=== PATIENT | female | born 1955 | race African-American/Black ===

== ENCOUNTER 2020-02-19 09:41 | Inpatient (IN) | payer BC, MEDICAID ==
[~2020-02-19] VITALS: Ht 160 cm; Wt 62.5 kg
[2020-02-19] VITALS (25 sets, daily range): BP systolic 90–127; BP diastolic 63–97
[2020-02-19 10:12] LABS: Basophils # (auto) 0 10 ^3/uL (0-0.2); Basophils % (auto) 0.3 % (0.0-2.0); Eosinophils # (auto) 0 10 ^3/uL (0-0.8); Hematocrit 32.9 % (36.0-46.0); Hemoglobin 10.6 g/dL (12.2-16.2); Lymphocytes # (auto) 0.7 10 ^3/uL (0.4-5.4); Lymphocytes % (auto) 5.8 % (10.0-50.0); Mean Corpuscular Hemoglobin 30.4 pg (28.0-32.0); Mean Corpuscular Hgb Conc. 32.1 g/dL (32.0-36.0); Mean Corpuscular Volume 94.4 fL (80.0-100.0); Monocytes # (auto) 0.3 10 ^3/uL (0-1.3); Monocytes % (auto) 2.5 % (0.0-12.0); Neutrophils # (auto) 11.2 10 ^3/uL (1.6-8.6); Neutrophils % (auto) 91.4 % (37.0-80.0); Nucleated Red Blood Cells % 0.2 %; Platelet Count (auto) 133 10^3/uL (140-450); Red Blood Cells 3.49 10^6/uL (4.0-5.20); White Blood Cell 12.2 10^3/uL (4.4-10.8)
[2020-02-19 10:17] LABS: Red Cell Distribution Width 22.9 % (11.8-14.3)
[2020-02-19 10:26] LABS: INR 1.45 (0.9-1.15); Partial Thromboplastin Time 22.6 sec (23.64-32.05)
[2020-02-19] MEDS ORDERED: SODIUM CHLORIDE 0.9% 1,000 ML IV ONE ×3 (11:00→17:00)
[2020-02-19] MEDS ORDERED: cefTRIAXone 1GM/50ML D5W 50 ML IV ONE (11:00)
[2020-02-19 11:05] LABS: Lactic Acid w/Reflex 2.2 mmol/L (0.4-2.0)
[2020-02-19 11:10] LABS: Urine Bacteria MOD /hpf (None Seen); Urine Blood TRACE /uL (Negative); Urine Hyaline Cast MOD /lpf (0 - 2); Urine Mucus FEW (None Seen); Urine Specific Gravity 1.018 (1.001-1.035); Urine WBC 3 /hpf (0 - 5)
[2020-02-19 11:33] LABS: Alanine Aminotransferase 131 U/L (13-56); Alkaline Phosphatase 287 U/L (45-117); Anion Gap 12 (5-15); Aspartate Aminotransferase 40 U/L (15-37); BUN/Creatinine Ratio 52.7; Blood Urea Nitrogen 79 mg/dL (7-18); Carbon Dioxide 22 mmol/L (21-32); Chloride 106 mmol/L (98-107); GFR African American 45 mL/min; GFR Non-African American 37 mL/min; Glucose 126 mg/dL (74-106); Potassium 4.4 mmol/L (3.5-5.1); Sodium 140 mmol/L (136-145)
[2020-02-19 11:34] LABS: Albumin 2.3 g/dL (3.4-5.0); Bilirubin, Total 1.3 mg/dL (0.2-1.0); Calcium 7.4 mg/dL (8.5-10.1); Total Protein 5.5 g/dL (6.4-8.2)
[2020-02-19] MEDS: SODIUM CHLORIDE 0.9% 1,000 ML IV ONE ×2 (12:45→13:27)
[2020-02-19] MEDS ORDERED: AZITHROMYCIN 500MG/ 250ML 250 ML IV ONE (12:45)
[2020-02-19] MEDS ORDERED: NOREPINEPHRINE 8 MG/250ML KIT 250 ML IV ONE (14:22)
[2020-02-19] MEDS ORDERED: LACTULOSE 20Gm/30ML SOLN PO PRN (14:45)
[2020-02-19] MEDS ORDERED: NITROGLYCERIN 0.4 MG SL TAB SL PRN (14:45)
[2020-02-19] MEDS ORDERED: ALBUTEROL SULF 2.5 MG/0.5ML(0.5%) NEB SOLN NEB PRN (14:45)
[2020-02-19] MEDS ORDERED: ONDANSETRON HCL 4 MG/2 ML VIAL IV PRN (14:45)
[2020-02-19] MEDS ORDERED: levoFLOXacin 500MG 100 ML IV ONE (14:45)
[2020-02-19] MEDS ORDERED: MORPHINE SULF INJ 2 MG/ML SYRINGE 1ML IV PRN ×3 (14:45)
[2020-02-19] MEDS: NOREPINEPHRINE 8 MG/250ML KIT 250 ML IV SCH (15:02)
[2020-02-19] MEDS ORDERED: ETOMIDATE (2MG/ML) 20ML VIAL IV ONE ×2 (15:20→15:30)
[2020-02-19] MEDS ORDERED: SUCCINYLCHOLINE CHLORIDE 20 MG/ML 10ML VIAL IV ONE ×2 (15:20→15:30)
[2020-02-19 15:25] LABS: Amphetamine Screen, Urine NEGATIVE (NEGATIVE); Barbiturate Scree,Urine NEGATIVE (NEGATIVE); Benzodiazephine Screen, Urine NEGATIVE (NEGATIVE); Cannabinoid Screen, Urine NEGATIVE (NEGATIVE); Cocaine Screen, Urine NEGATIVE (NEGATIVE); Opiate Scree,Urine NEGATIVE (NEGATIVE); Phencyclidine Screen, Urine NEGATIVE (NEGATIVE)
[2020-02-19] MEDS ORDERED: MIDAZOLAM DRIP 50 mg/50mL 50 ML IV ONE (15:28)
[2020-02-19] MEDS: MIDAZOLAM DRIP 50 mg/50mL 50 ML IV SCH (15:30)
[2020-02-19] MEDS ORDERED: SODIUM CHLORIDE 0.9% 1,000 ML IV SCH (15:45)
[2020-02-19] MEDS ORDERED: ENOXAPARIN SOD 60 MG/0.6 ML SYRINGE SC ONE (15:45)
[2020-02-19 15:53] LABS: CRP High Sensitivity 8.83 mg/dL (< 0.3)
[2020-02-19] MEDS: DOPamine 1600MCG/ML D5W 250 ML IV SCH (17:42)
[2020-02-19] MEDS: IPRATROPIUM BROM 0.5 MG/2.5ML INH SOL NEB SCH ×2 (18:35→23:59)
[2020-02-19] MEDS: ALBUTEROL SULF 2.5 MG/0.5ML(0.5%) NEB SOLN NEB SCH ×2 (18:35→23:59)
[2020-02-19 19:37] LABS: Free T3 1.28 pg/mL (2.3-4.2)
[2020-02-19 19:38] LABS: Free T4 (Free Thyroxine) 1.01 ng/dL (0.89-1.76)
[2020-02-19] MEDS ORDERED: FAMOTIDINE 20 MG TAB PO SCH (22:00)
[2020-02-20] VITALS (104 sets, daily range): BP systolic 83–130; BP diastolic 63–98
[2020-02-20] MEDS: MIDAZOLAM DRIP 50 mg/50mL 50 ML IV SCH (00:45)
[2020-02-20 04:36] LABS: Basophils # (auto) 0 10 ^3/uL (0-0.2); Eosinophils # (auto) 0 10 ^3/uL (0-0.8); Hematocrit 31.6 % (36.0-46.0); Hemoglobin 10.4 g/dL (12.2-16.2); Lymphocytes # (auto) 0.9 10 ^3/uL (0.4-5.4); Lymphocytes % (auto) 7.3 % (10.0-50.0); Mean Corpuscular Hemoglobin 30.8 pg (28.0-32.0); Mean Corpuscular Hgb Conc. 32.8 g/dL (32.0-36.0); Mean Corpuscular Volume 93.9 fL (80.0-100.0); Monocytes # (auto) 0.3 10 ^3/uL (0-1.3); Monocytes % (auto) 2.6 % (0.0-12.0); Neutrophils # (auto) 10.9 10 ^3/uL (1.6-8.6); Neutrophils % (auto) 90.1 % (37.0-80.0); Nucleated Red Blood Cells % 0.4 %; Platelet Count (auto) 95 10^3/uL (140-450); Red Blood Cells 3.36 10^6/uL (4.0-5.20); White Blood Cell 12.1 10^3/uL (4.4-10.8)
[2020-02-20 04:44] LABS: Red Cell Distribution Width 21.7 % (11.8-14.3)
[2020-02-20] MEDS: NOREPINEPHRINE 8 MG/250ML KIT 250 ML IV SCH (04:47)
[2020-02-20 04:50] LABS: INR 1.55 (0.9-1.15); Partial Thromboplastin Time 27.4 sec (23.64-32.05)
[2020-02-20 04:53] LABS: Potassium 4.1 mmol/L (3.5-5.1)
[2020-02-20 04:57] LABS: BUN/Creatinine Ratio 48.1; Calcium 7.3 mg/dL (8.5-10.1)
[2020-02-20 05:03] LABS: Bilirubin, Total 0.9 mg/dL (0.2-1.0); Total Protein 5.1 g/dL (6.4-8.2)
[2020-02-20] MEDS: ALBUTEROL SULF 2.5 MG/0.5ML(0.5%) NEB SOLN NEB SCH ×3 (07:05→18:29)
[2020-02-20] MEDS: IPRATROPIUM BROM 0.5 MG/2.5ML INH SOL NEB SCH ×3 (07:05→18:29)
[2020-02-20] MEDS ORDERED: levoFLOXacin 750MG 150 ML IV SCH (10:00)
[2020-02-20] MEDS ORDERED: levoFLOXacin 500MG 100 ML IV SCH (10:00)
[2020-02-20] MEDS ORDERED: PHENYLEPHRINE IV 250 ML IV ONE (13:03)
[2020-02-20] MEDS ORDERED: PHENYLEPHRINE IV 250 ML IV SCH (13:15)
[2020-02-20] MEDS ORDERED: DIGOXIN (250MCG/ML) 2 ML AMPULE IV ONE (13:15)
[2020-02-20] MEDS ORDERED: DIGOXIN (250MCG/ML) 2 ML AMPULE ONE (13:15)
[2020-02-20] MEDS ORDERED: AMIODARONE HCL 150 MG in D5W 5% 100 ML IV ONE (13:45)
[2020-02-20] MEDS ORDERED: AMIODARONE 450mg/250ml AE 250 ML IV SCH (13:48)
[2020-02-20] MEDS: PANTOPRAZOLE 40 MG/10 ML VIAL INJ IV SCH (14:47)
[2020-02-20] MEDS: PHENYLEPHRINE INJ 40 MG in SODIUM CHL 0.9% 250 ML IV SCH ×2 (16:46→23:05)
[2020-02-20] MEDS: DOPamine 1600MCG/ML D5W 250 ML IV SCH (16:48)
[2020-02-20] MEDS: AMIODARONE 450mg/250ml AE 250 ML IV SCH (20:38)
[2020-02-20] MEDS ORDERED: ENOXAPARIN SOD 60 MG/0.6 ML SYRINGE SC SCH (22:00)
[2020-02-21] VITALS (107 sets, daily range): BP systolic 83–119; BP diastolic 55–92
[2020-02-21] MEDS: ALBUTEROL SULF 2.5 MG/0.5ML(0.5%) NEB SOLN NEB SCH ×4 (00:20→18:31)
[2020-02-21] MEDS: IPRATROPIUM BROM 0.5 MG/2.5ML INH SOL NEB SCH ×4 (00:20→18:31)
[2020-02-21] MEDS: AMIODARONE 450mg/250ml AE 250 ML IV SCH (00:41)
[2020-02-21] MEDS ORDERED: PHENYLEPHRINE IV 250 ML IV ONE (09:59)
[2020-02-21] MEDS: PANTOPRAZOLE 40 MG/10 ML VIAL INJ IV SCH (10:06)
[2020-02-21] MEDS: MIDAZOLAM DRIP 50 mg/50mL 50 ML IV SCH (10:07)
[2020-02-21] MEDS: DOPamine 1600MCG/ML D5W 250 ML IV SCH (17:30)
[2020-02-21] MEDS: PHENYLEPHRINE INJ 40 MG in SODIUM CHL 0.9% 250 ML IV SCH (18:47)
[2020-02-22] VITALS (102 sets, daily range): BP systolic 79–120; BP diastolic 58–86
[2020-02-22] MEDS: IPRATROPIUM BROM 0.5 MG/2.5ML INH SOL NEB SCH ×4 (00:03→18:06)
[2020-02-22] MEDS: ALBUTEROL SULF 2.5 MG/0.5ML(0.5%) NEB SOLN NEB SCH ×4 (00:03→18:06)
[2020-02-22] MEDS: AMIODARONE 450mg/250ml AE 250 ML IV SCH ×2 (01:48→18:24)
[2020-02-22 04:08] LABS: Basophils # (auto) 0 10 ^3/uL (0-0.2); Basophils % (auto) 0.1 % (0.0-2.0); Eosinophils # (auto) 0 10 ^3/uL (0-0.8); Eosinophils % (auto) 0.2 % (0.0-7.0); Hemoglobin 10.9 g/dL (12.2-16.2); Lymphocytes # (auto) 0.5 10 ^3/uL (0.4-5.4); Lymphocytes % (auto) 5.8 % (10.0-50.0); Mean Corpuscular Hemoglobin 30.9 pg (28.0-32.0); Mean Corpuscular Hgb Conc. 33.1 g/dL (32.0-36.0); Mean Corpuscular Volume 93.4 fL (80.0-100.0); Monocytes # (auto) 0.3 10 ^3/uL (0-1.3); Monocytes % (auto) 3.2 % (0.0-12.0); Neutrophils # (auto) 8.2 10 ^3/uL (1.6-8.6); Neutrophils % (auto) 90.7 % (37.0-80.0); Platelet Count (auto) 82 10^3/uL (140-450); Red Blood Cells 3.53 10^6/uL (4.0-5.20)
[2020-02-22 04:10] LABS: Red Cell Distribution Width 22.8 % (11.8-14.3)
[2020-02-22 04:18] LABS: Albumin 1.6 g/dL (3.4-5.0); Potassium 3.1 mmol/L (3.5-5.1)
[2020-02-22 04:22] LABS: Bilirubin, Total 1.3 mg/dL (0.2-1.0); Total Protein 4.7 g/dL (6.4-8.2)
[2020-02-22] MEDS ORDERED: POTASSIUM CHL 20MEQ/100ML 100 ML IV ONE (06:30)
[2020-02-22] MEDS ORDERED: LEVOTHYROXINE SODIUM 100 MCG/5 ML INJ IV SCH (10:00)
[2020-02-22] MEDS: LEVOTHYROXINE SODIUM 100 MCG/5 ML INJ IV SCH (10:36)
[2020-02-22] MEDS: PANTOPRAZOLE 40 MG/10 ML VIAL INJ IV SCH (10:36)
[2020-02-22] MEDS: levoFLOXacin 750MG 150 ML IV SCH (10:37)
[2020-02-22] MEDS: MIDAZOLAM DRIP 50 mg/50mL 50 ML IV SCH (15:21)
[2020-02-22] MEDS: DOPamine 1600MCG/ML D5W 250 ML IV SCH (18:23)
[2020-02-22] MEDS: PHENYLEPHRINE INJ 40 MG in SODIUM CHL 0.9% 250 ML IV SCH (18:23)
[2020-02-23] VITALS (95 sets, daily range): BP systolic 93–154; BP diastolic 65–96
[2020-02-23] MEDS: ALBUTEROL SULF 2.5 MG/0.5ML(0.5%) NEB SOLN NEB SCH ×4 (00:03→18:24)
[2020-02-23] MEDS: IPRATROPIUM BROM 0.5 MG/2.5ML INH SOL NEB SCH ×4 (00:03→18:24)
[2020-02-23 04:31] LABS: Basophils # (auto) 0 10 ^3/uL (0-0.2); Basophils % (auto) 0.1 % (0.0-2.0); Eosinophils # (auto) 0 10 ^3/uL (0-0.8); Eosinophils % (auto) 0.3 % (0.0-7.0); Hematocrit 32.1 % (36.0-46.0); Hemoglobin 10.6 g/dL (12.2-16.2); Lymphocytes # (auto) 0.7 10 ^3/uL (0.4-5.4); Lymphocytes % (auto) 8.1 % (10.0-50.0); Mean Corpuscular Hgb Conc. 32.9 g/dL (32.0-36.0); Monocytes # (auto) 0.4 10 ^3/uL (0-1.3); Monocytes % (auto) 4.4 % (0.0-12.0); Neutrophils # (auto) 7.3 10 ^3/uL (1.6-8.6); Neutrophils % (auto) 87.1 % (37.0-80.0); Nucleated Red Blood Cells % 0.1 %; Platelet Count (auto) 90 10^3/uL (140-450); Red Blood Cells 3.42 10^6/uL (4.0-5.20); White Blood Cell 8.4 10^3/uL (4.4-10.8)
[2020-02-23 04:46] LABS: Albumin 1.6 g/dL (3.4-5.0); Calcium 7.1 mg/dL (8.5-10.1); Potassium 3.8 mmol/L (3.5-5.1)
[2020-02-23 04:51] LABS: BUN/Creatinine Ratio 31.1; Bilirubin, Total 1.3 mg/dL (0.2-1.0); Total Protein 4.8 g/dL (6.4-8.2)
[2020-02-23 04:53] LABS: Red Cell Distribution Width 23.9 % (11.8-14.3)
[2020-02-23] MEDS: PHENYLEPHRINE INJ 40 MG in SODIUM CHL 0.9% 250 ML IV SCH (05:47)
[2020-02-23] MEDS ORDERED: MAGNESIUM SULFATE 1GM/100ML 100 ML IV ONE (08:00)
[2020-02-23] MEDS: AMIODARONE 450mg/250ml AE 250 ML IV SCH ×2 (10:07→22:45)
[2020-02-23] MEDS: PANTOPRAZOLE 40 MG/10 ML VIAL INJ IV SCH (10:08)
[2020-02-23] MEDS: LEVOTHYROXINE SODIUM 100 MCG/5 ML INJ IV SCH (10:08)
[2020-02-23] MEDS: levoFLOXacin 750MG 150 ML IV SCH (11:30)
[2020-02-23] MEDS: MIDAZOLAM DRIP 50 mg/50mL 50 ML IV SCH (15:21)
[2020-02-23] MEDS: DOPamine 1600MCG/ML D5W 250 ML IV SCH (17:30)
[2020-02-23] MEDS ORDERED: FUROSEMIDE 20 MG/2 ML VIAL IV ONE (18:15)
[2020-02-23] MEDS ORDERED: ACETAMINOPHEN 650 MG RECT SUPP PR PRN (20:15)
[2020-02-24] VITALS (30 sets, daily range): BP systolic 88–118; BP diastolic 57–89
[2020-02-24] MEDS: ALBUTEROL SULF 2.5 MG/0.5ML(0.5%) NEB SOLN NEB SCH ×4 (00:42→18:33)
[2020-02-24] MEDS: IPRATROPIUM BROM 0.5 MG/2.5ML INH SOL NEB SCH ×4 (00:42→18:33)
[2020-02-24] MEDS: PHENYLEPHRINE INJ 40 MG in SODIUM CHL 0.9% 250 ML IV SCH (01:07)
[2020-02-24] MEDS: LEVOTHYROXINE SODIUM 25 MCG TAB PO SCH (07:00)
[2020-02-24] MEDS ORDERED: AMIODARONE 450mg/250ml AE 250 ML IV SCH (08:30)
[2020-02-24] MEDS: PANTOPRAZOLE 40 MG TAB PO SCH (10:00)
[2020-02-24] MEDS: levoFLOXacin 750MG 150 ML IV SCH (10:00)
[2020-02-24] MEDS: AMIODARONE HCL 200 MG TAB PO SCH ×2 (10:00→15:04)
[2020-02-24] MEDS ORDERED: IOHEXOL 350 MG/ML 100ML IJ ONE (15:08)
[2020-02-24] MEDS: APIXABAN 5 MG TAB PO SCH (18:45)
[2020-02-24] MEDS ORDERED: FUROSEMIDE 20 MG/2 ML VIAL IV ONE (23:30)
[2020-02-25] VITALS: BP 140/92
[2020-02-25 04:00] VITALS: BP 137/101
[2020-02-25] MEDS: IPRATROPIUM BROM 0.5 MG/2.5ML INH SOL NEB SCH ×3 (06:00→11:25)
[2020-02-25] MEDS: ALBUTEROL SULF 2.5 MG/0.5ML(0.5%) NEB SOLN NEB SCH ×3 (06:00→11:25)
[2020-02-25] MEDS: LEVOTHYROXINE SODIUM 25 MCG TAB PO SCH (06:06)
[2020-02-25 07:38] LABS: Basophils # (auto) 0 10 ^3/uL (0-0.2); Basophils % (auto) 0.2 % (0.0-2.0); Eosinophils # (auto) 0 10 ^3/uL (0-0.8); Hematocrit 32.2 % (36.0-46.0); Hemoglobin 10.5 g/dL (12.2-16.2); Lymphocytes # (auto) 0.4 10 ^3/uL (0.4-5.4); Lymphocytes % (auto) 5.5 % (10.0-50.0); Mean Corpuscular Hemoglobin 30.4 pg (28.0-32.0); Mean Corpuscular Hgb Conc. 32.5 g/dL (32.0-36.0); Mean Corpuscular Volume 93.5 fL (80.0-100.0); Monocytes # (auto) 0.3 10 ^3/uL (0-1.3); Monocytes % (auto) 4.1 % (0.0-12.0); Neutrophils # (auto) 6.8 10 ^3/uL (1.6-8.6); Neutrophils % (auto) 90.2 % (37.0-80.0); Nucleated Red Blood Cells % 0.1 %; Platelet Count (auto) 116 10^3/uL (140-450); Red Blood Cells 3.44 10^6/uL (4.0-5.20); White Blood Cell 7.5 10^3/uL (4.4-10.8)
[2020-02-25 07:39] LABS: Red Cell Distribution Width 23.3 % (11.8-14.3)
[2020-02-25 07:40] VITALS: BP 114/79
[2020-02-25 07:56] LABS: BUN/Creatinine Ratio 37.5; Calcium 8.1 mg/dL (8.5-10.1); Potassium 3.7 mmol/L (3.5-5.1)
[2020-02-25] MEDS: APIXABAN 5 MG TAB PO SCH (08:13)
[2020-02-25] MEDS: levoFLOXacin 750MG 150 ML IV SCH (09:17)
[2020-02-25] MEDS: PANTOPRAZOLE 40 MG TAB PO SCH (09:18)
[2020-02-25] MEDS: AMIODARONE HCL 200 MG TAB PO SCH (09:18)
[2020-02-25 11:45] VITALS: BP 90/63
[2020-02-25] MEDS ORDERED: ALBUAER3 IN (12:37)
[2020-02-25] MEDS ORDERED: LEV25T PO (12:37)
[2020-02-25] MEDS ORDERED: AMIO200T4 PO (12:37)
[2020-02-25] MEDS ORDERED: APIX5TAB PO (12:37)
[2020-02-25] MEDS ORDERED: FURO1TAB33 PO (12:37)
[2020-02-25] MEDS ORDERED: LEVO750T2 PO (12:37)
[2020-02-25 15:30] VITALS: BP 97/73
[2020-02-25 15:45] VITALS: BP 97/73
[2020-03-02] MEDS ORDERED: APIXABAN 5 MG TAB PO SCH (18:00)
== END 2020-02-25 17:45 | DRG 720 ==
LOC: EDBD 09:41 → ER 09:41 → OVERFLOW 09:42 → ICU WEST 18:06 → DOU IN ICU 02-24 09:33
PROVIDERS: ADMIT Internal Medicine; ATTEND Internal Medicine
PROC: 5A1955Z Respiratory Ventilation, Greater than 96 Consecutive Hours (ICD-10-PCS; principal; 2020-02-19)
PROC: 0BH17EZ Insertion of Endotracheal Airway into Trachea, Via Natural or Artificial Opening (ICD-10-PCS; 2020-02-19)
PROC: 02HV33Z Insertion of Infusion Device into Superior Vena Cava, Percutaneous Approach (ICD-10-PCS; 2020-02-24)
DX: A41.9 Sepsis, unspecified organism (principal); I21.4 Non-ST elevation (NSTEMI) myocardial infarction; J96.01 Acute respiratory failure with hypoxia; R65.21 Severe sepsis with septic shock; G92 Toxic encephalopathy; E46 Unspecified protein-calorie malnutrition; K85.90 Acute pancreatitis without necrosis or infection, unspecified; J18.9 Pneumonia, unspecified organism; G93.1 Anoxic brain damage, not elsewhere classified; I50.23 Acute on chronic systolic (congestive) heart failure; C79.9 Secondary malignant neoplasm of unspecified site; C50.919 Malignant neoplasm of unspecified site of unspecified female breast; D69.6 Thrombocytopenia, unspecified; I95.0 Idiopathic hypotension; E87.2 Acidosis; E86.0 Dehydration; R79.89 Other specified abnormal findings of blood chemistry; R16.0 Hepatomegaly, not elsewhere classified; E03.9 Hypothyroidism, unspecified; I13.0 Hypertensive heart and chronic kidney disease with heart failure and stage 1 through stage 4 chronic kidney disease, or unspecified chronic kidney disease; I48.91 Unspecified atrial fibrillation; N17.9 Acute kidney failure, unspecified; N18.9 Chronic kidney disease, unspecified; I48.0 Paroxysmal atrial fibrillation; N39.0 Urinary tract infection, site not specified; Z79.899 Other long term (current) drug therapy; Z79.51 Long term (current) use of inhaled steroids; Z80.3 Family history of malignant neoplasm of breast
CPT/HCPCS: 36415; 36600; 51702; 70450; 71045; 71250; 71275; 74176; 76705; 80048; 80053; 80307; 81001; 82150; 82550; 82805; 83605; 83690; 83735; 83880; 84132; 84439; 84443; 84481; 84484; 85025; 85379; 85610; 85730; 86141; 87040; 87070; 87077; 87081; 87086; 87088; 87186; 87205; 92610; 93005; 93306; 93970; 94002; 94003; 94640; 95819; 96365; 96366; 96367; 96375; 97163; 99291; C9113; G0378; J0330; J0696; J1956; J2250; J3480; J3490; J7060

== ENCOUNTER 2020-03-04 10:03 | Inpatient (IN) | payer MEDICAID ==
[~2020-03-04] VITALS: Ht 152.4 cm; Wt 50.1 kg
[~2020-03-04 10:03] MED LIST: ALBUAER3 IN; AMIO200T4 PO; APIX5TAB PO; FURO1TAB33 PO; LEV25T PO; LEVO750T2 PO
[2020-03-04] MEDS ORDERED: SODIUM CHLORIDE 0.9% 1,000 ML IV ONE (10:06)
[2020-03-04 10:34] LABS: Basophils # (auto) 0 10 ^3/uL (0-0.2); Basophils % (auto) 0.1 % (0.0-2.0); Eosinophils # (auto) 0 10 ^3/uL (0-0.8); Eosinophils % (auto) 0.5 % (0.0-7.0); Hematocrit 29.2 % (36.0-46.0); Hemoglobin 9.3 g/dL (12.2-16.2); Lymphocytes # (auto) 0.6 10 ^3/uL (0.4-5.4); Lymphocytes % (auto) 10.2 % (10.0-50.0); Mean Corpuscular Hemoglobin 30.4 pg (28.0-32.0); Mean Corpuscular Hgb Conc. 31.7 g/dL (32.0-36.0); Mean Corpuscular Volume 96.1 fL (80.0-100.0); Monocytes # (auto) 0.3 10 ^3/uL (0-1.3); Monocytes % (auto) 4.7 % (0.0-12.0); Neutrophils % (auto) 84.5 % (37.0-80.0); Nucleated Red Blood Cells % 0.5 %; Platelet Count (auto) 114 10^3/uL (140-450); Red Blood Cells 3.04 10^6/uL (4.0-5.20); White Blood Cell 5.9 10^3/uL (4.4-10.8)
[2020-03-04 10:41] LABS: Red Cell Distribution Width 24.1 % (11.8-14.3)
[2020-03-04 10:44] LABS: INR 1.99 (0.9-1.15); Partial Thromboplastin Time 35.1 sec (23.64-32.05)
[2020-03-04 10:53] LABS: Albumin 1.8 g/dL (3.4-5.0); Calcium 7.2 mg/dL (8.5-10.1); Potassium 3.2 mmol/L (3.5-5.1)
[2020-03-04 10:58] LABS: BUN/Creatinine Ratio 34.1; Bilirubin, Total 1.1 mg/dL (0.2-1.0); Total Protein 4.8 g/dL (6.4-8.2)
[2020-03-04 10:59] LABS: Urine Amorphous Crystal FEW /hpf (None Seen); Urine Bacteria FEW /hpf (None Seen); Urine Blood TRACE /uL (Negative); Urine Hyaline Cast MANY /lpf (0 - 2); Urine Mucus FEW (None Seen); Urine Specific Gravity 1.021 (1.001-1.035); Urine WBC 12 /hpf (0 - 5)
[2020-03-04] MEDS ORDERED: cefTRIAXone 1GM/50ML D5W 50 ML IV ONE ×2 (11:45→12:45)
[2020-03-04] MEDS ORDERED: AZITHROMYCIN 500MG/ 250ML 250 ML IV ONE (11:45)
[2020-03-04] MEDS ORDERED: traMADol HCL 50 MG TAB PO PRN (12:45)
[2020-03-04] MEDS ORDERED: LORazepam 0.5 MG TAB PO PRN (12:45)
[2020-03-04] MEDS ORDERED: MORPHINE SULF INJ 2 MG/ML SYRINGE 1ML IV PRN ×2 (12:45)
[2020-03-04] MEDS ORDERED: PROMETHAZINE HCL 25 MG/ML 1ML IV PRN (12:45)
[2020-03-04] MEDS ORDERED: NITROGLYCERIN 0.4 MG SL TAB SL PRN (12:45)
[2020-03-04] MEDS ORDERED: ALBUTEROL SULF 2.5 MG/0.5ML(0.5%) NEB SOLN NEB PRN (12:45)
[2020-03-04 13:32] VITALS: BP 95/57
[2020-03-04] MEDS ORDERED: LEVOTHYROXINE SODIUM 50 MCG TAB PO ONE (16:15)
[2020-03-04] MEDS: ALBUTEROL SULF 2.5 MG/0.5ML(0.5%) NEB SOLN NEB SCH (17:54)
[2020-03-04] MEDS: IPRATROPIUM BROM 0.5 MG/2.5ML INH SOL NEB SCH (17:54)
[2020-03-04] MEDS ORDERED: LACTATED RINGER'S 2,200 ML IV ONE (18:15)
[2020-03-04] MEDS ORDERED: SOD CHL 0.9%/ KCL 40MEQ 1,000 ML IV SCH (18:15)
--- NOTE | 2020-03-04 18:33 | NUR ---
RT NOTE RT ATTEMPTED TO DRAW ABG LEFT OVER FROM DAYSHIFT. PT ALLOWED FOR RT TO DRAW. RT WAS NOT ABLE TO GET MORE THAN A FLASH WHEN ATTEMPTING DRAW. PT DID NOT WANT A SECOND ATTEMPT. RT GAVE BREATHING TX AND TRY TO GET PT TO CONSENT FOR ANOTHER TRY FOR THE ABG IN ABOUT AN HOUR.
[2020-03-04] MEDS: DOBUTamine 1000MCG/ML 250 ML IV SCH (19:45)
[2020-03-04] MEDS: FUROSEMIDE INJECTION 100 MG in SODIUM CHL 0.9% 100 ML IV SCH (19:55)
[2020-03-05] VITALS (53 sets, daily range): BP systolic 79–126; BP diastolic 43–72
[2020-03-05] MEDS ORDERED: ALBUMIN 5% 250 ML IV ONE (05:45)
[2020-03-05] MEDS: IPRATROPIUM BROM 0.5 MG/2.5ML INH SOL NEB SCH ×3 (06:00→06:29)
[2020-03-05] MEDS: ALBUTEROL SULF 2.5 MG/0.5ML(0.5%) NEB SOLN NEB SCH ×3 (06:00→06:29)
[2020-03-05 06:41] LABS: Basophils # (auto) 0 10 ^3/uL (0-0.2); Basophils % (auto) 0.1 % (0.0-2.0); Eosinophils # (auto) 0 10 ^3/uL (0-0.8); Eosinophils % (auto) 0.5 % (0.0-7.0); Hematocrit 26.8 % (36.0-46.0); Hemoglobin 8.7 g/dL (12.2-16.2); Lymphocytes # (auto) 0.4 10 ^3/uL (0.4-5.4); Lymphocytes % (auto) 6.9 % (10.0-50.0); Mean Corpuscular Hgb Conc. 32.4 g/dL (32.0-36.0); Mean Corpuscular Volume 95.4 fL (80.0-100.0); Monocytes # (auto) 0.3 10 ^3/uL (0-1.3); Monocytes % (auto) 6.8 % (0.0-12.0); Neutrophils # (auto) 4.3 10 ^3/uL (1.6-8.6); Neutrophils % (auto) 85.7 % (37.0-80.0); Nucleated Red Blood Cells % 0.1 %; Platelet Count (auto) 99 10^3/uL (140-450); Red Blood Cells 2.81 10^6/uL (4.0-5.20); White Blood Cell 5.1 10^3/uL (4.4-10.8)
--- NOTE | 2020-03-05 06:46 | NUR ---
REPORT RECEIVED FROM BRITTANY LOERA RN
[2020-03-05 06:48] LABS: Red Cell Distribution Width 23.6 % (11.8-14.3)
[2020-03-05] MEDS ORDERED: LEVOTHYROXINE SODIUM 50 MCG TAB PO SCH (07:00)
[2020-03-05 07:03] LABS: Potassium 3.1 mmol/L (3.5-5.1)
--- NOTE | 2020-03-05 07:10 | NUR ---
Admit to [facility] SHIRLEYitted to [facility] via gurney on cardiac exercise specialist, and portable 02. Patient transfered to bed, connected to unit monitoring and oxygen, and weighed by [facility]. Patient oriented to Ruslan dunn RN, unit, room, bed, and unit policies regarding patient care and visiting hours. All questions and concerns addressed, patient verbalized understanding. NOTE: LEFT TLC FEMORAL CATHETER INTACT WITH SEROSANGUINOUS OOZING AND NS WITH 40 MEQ POTASSIUM INFUSING AT 100 ML/HR, DOBUTAMINE INFUSING AT 2.5 MCG/KG/MIN AND LASIX 10MG/HR WHICH IS 11 MLS/HR INFUSING. RIGHT UPPER ARM SINGLE LUMEN MIDLINE IN PLACE. 02 AT 2 LPM VIA NC WITH SPO2 100% CLEAR TO DIMINISHED LUNG SOUNDS. ALERT/ORIENTED X2 WITH GENERALIZED WEAKNESS ASSESSED. CERNA TO GRAVITY. SACRUM HAS OPEN AREAS WITH ZGUARD CREAM APPLIED-PER REPORT FURNITURE MECHANIC TOOK PICTURES ALREADY. REPOSITIONED OFF SACRUM AND WILL REPOSITION Q2H.BED IN LOW POSITION, CALL LIGHT IN REACH. Addendum: 03/05/20 at 1314 by Ruslan Sheridan RN PATIENT IS ICU STATUS
[2020-03-05 07:11] LABS: Albumin 1.7 g/dL (3.4-5.0); BUN/Creatinine Ratio 27.8; Bilirubin, Total 0.9 mg/dL (0.2-1.0); Calcium 6.6 mg/dL (8.5-10.1); Total Protein 4.4 g/dL (6.4-8.2)
[2020-03-05] MEDS ORDERED: FUROSEMIDE 40 MG/4 ML VIAL IV SCH ×2 (08:00→10:00)
[2020-03-05] MEDS: FUROSEMIDE INJECTION 100 MG in SODIUM CHL 0.9% 100 ML IV SCH ×2 (08:33→13:13)
[2020-03-05] MEDS: LEVOTHYROXINE SODIUM 100 MCG TAB PO SCH (08:33)
[2020-03-05] MEDS ORDERED: cefTRIAXone 1GM/50ML D5W 50 ML IV SCH (09:00)
[2020-03-05] MEDS ORDERED: POTASSIUM CHL 20 Meq TABLET PO SCH (10:00)
--- NOTE | 2020-03-05 12:10 | NUR ---
[facility]OUND CARE NURSE INTO SEE PATIENT
--- NOTE | 2020-03-05 12:22 | NUR ---
WOUND CARE NOTE: Wound care in to see patient per wound care request regarding skin integrity issue that are noted present on admission. Patient is 64 years old female with admitting diagnosis of Heart Failure,Non STEMI, UTI, Pleural Effusion. Patient is resting in SDU bed in Rm. 265. Patient is awake but not oriented. Patient is in no stated pain at this time and she appears to be in n o pain using Ibrahim Araiza Faces Pain Scale. Patient need assistance in turning and repositioning. Her Ezequiel score is 12. Skin/wound assessment done with the assistance of lunch covering nurse, KELECHI Rosales. Patient's medial sacrum (3x3cm) and Rt sacrum (6x4cm) noted with Unstageable pressure injury. Medial sacral pressure injury is red with kelly adherent necrotic tissue. Rt sacral pressure injury is black hard skin with multi open small wounds. Maddison wound is hyperpigmented minimal serosanguineous drainage noted, no odor noted. Maddison care given, applied Thera honey gel to open wounds and covered with Opti foams acral dressing per MD order. Patient's L dorsal hand noted with intact hyperpigmented skin, area is clean and dry, left open to air. Patient tolerated well, repositioned for comfort facing her Lt side,redistributed pressure points with pillows. Photograph of mentioned wounds are taken for reference. RECOMMENDATION: Nursing to continue with Daily/PRN dressing change to sacral wound per MD order, Dietary consult , frequent turning and repositioning schedule as condition permits, redistribute pressure points with pillows, air mattress (ordered), elevate heels on pillows, continue monitoring by wound care while patient is hospitalized. Addendum: 03/05/20 at 1545 by Sarah Belcher RN Amended: Links added.
[2020-03-05] MEDS ORDERED: IPRATROPIUM BROM 0.5 MG/2.5ML INH SOL NEB PRN (13:00)
[2020-03-05] MEDS ORDERED: POTASSIUM EFFERVESENT TAB 25 MEQ PO SCH (13:00)
[2020-03-05] MEDS ORDERED: ALBUTEROL SULF 2.5 MG/0.5ML(0.5%) NEB SOLN NEB PRN (13:00)
--- NOTE | 2020-03-05 13:14 | NUR ---
LASIX DRIP AT 5 MG/HR, 5.5 MLS/HR PER DR WILDER ORDER IN [facility]. RN ALSO STOPPED IVF AT THIS TIME PER DR ORDER.
[2020-03-05] MEDS: POTASSIUM EFFERVESENT TAB 25 MEQ PO SCH ×2 (13:20→21:11)
[2020-03-05] MEDS: ALBUMIN 25% 100 ML IV SCH ×2 (13:25→21:11)
--- NOTE | 2020-03-05 13:39 | NUR ---
JANINE CRYSTAL [phone] CALLED AND STATED [facility] IS [email or web address]
--- NOTE | 2020-03-05 13:46 | NUR ---
AIR MATTRESS: Air mattress ordered at [facility],Reference # [id number]; ETA 03/05/20 @1945, Call [facility] if need to follow up at [phone] Addendum: 03/05/20 at 1347 by Sarah Belcher RN Amended: Links added.
--- NOTE | 2020-03-05 15:00 | NUR ---
SPOKE WITH DR WILDER, NEW ORDERS RECEIVED
--- NOTE | 2020-03-05 15:07 | NUR ---
D/C Planning Per Social Service for [facility]-Palliative/HARP service due to breast cancer with cardiomyopathy. Faxed clinical information to [facility]. Per Bella with [facility] they will refer patient to their [facility] Palliative/ HARP service.
--- NOTE | 2020-03-05 19:20 | NUR ---
Respiratory note: ASSESSED PT AT THIS TIME FOR PRN MED NEB, PT DENIES SOB AT THIS TIME, NO RESP DISTRESS NOTED, NO TX INDICATED. PULSE OX 96% ON 2LNC, HR 108, RR 28, BILATERAL BS DIMINISHED.
[2020-03-05] MEDS: DOBUTamine 1000MCG/ML 250 ML IV SCH (20:32)
[2020-03-05] MEDS: AMIODARONE HCL 200 MG TAB PO SCH (21:11)
[2020-03-05] MEDS: MIDODRINE HCL 10 MG TAB PO SCH (21:12)
--- NOTE | 2020-03-05 23:05 | NUR ---
Patient bathe/linen change/ Elimination Patient given complete bath after having moderate formed stools. Skin integrity assessed for any changes. Linens changed. Patient repositioned for comfort.
[2020-03-06] VITALS (14 sets, daily range): BP systolic 98–117; BP diastolic 54–75
[2020-03-06 04:05] LABS: BUN/Creatinine Ratio 19.6; Calcium 6.7 mg/dL (8.5-10.1); Magnesium 1.3 mg/dL (1.6-2.6)
[2020-03-06 04:10] LABS: Potassium 2.9 mmol/L (3.5-5.1)
--- NOTE | 2020-03-06 04:25 | NUR ---
Paged Dr. Andrade to inform of critical K+ 2.9, left a message thru a voice mailbox. Awaiting callback.
--- NOTE | 2020-03-06 04:35 | NUR ---
Dr. Guerrero called back, updated on pt's status and critical potassium 2.9, gave orders for K-rider 40 Meq then repeat potassium after giving the K rider.
[2020-03-06] MEDS: ALBUMIN 25% 100 ML IV SCH (04:44)
[2020-03-06] MEDS: POTASSIUM CHL 20MEQ/100ML 100 ML IV SCH ×2 (05:01→06:54)
[2020-03-06] MEDS: POTASSIUM EFFERVESENT TAB 25 MEQ PO SCH ×4 (06:00→22:10)
[2020-03-06] MEDS: LEVOTHYROXINE SODIUM 100 MCG TAB PO SCH (06:01)
[2020-03-06] MEDS: MIDODRINE HCL 10 MG TAB PO SCH ×3 (06:01→22:07)
--- NOTE | 2020-03-06 07:15 | NUR ---
Respiratory note: ASSESSED PT AT THIS TIME FOR PRN MED NEB, PT DENIES SOB AT THIS TIME, NO RESP DISTRESS NOTED, NO TX INDICATED. PULSE OX 96% ON 1LNC, HR 101, RR 35, BILATERAL BS DIMINISHED. PT KNOWS TO HAVE RT PAGED IF TX IS NEEDED.
--- NOTE | 2020-03-06 08:15 | NUR ---
Opening Shift Note Assumed care of patient, awake and oriented x3, re-oriented to time. No S/S of pain. SOB on exertion. Saturation 96% at 2 LPM oxygen via nasal cannula. See interventions for complete assessment. Bed locked on low position, side rails up x2, bed alarms on at all times, call nogueira within reach, instructed on POC and to call for assist PRN, will continue to monitor for changes Q1hr and PRN.
--- NOTE | 2020-03-06 09:38 | NUR ---
Received call from patient's García who's able to provide password, updated on patient's status and POC. All questions and concerns addressed.
[2020-03-06] MEDS ORDERED: POTASSIUM EFFERVESENT TAB 25 MEQ PO SCH (10:00)
[2020-03-06] MEDS: FUROSEMIDE INJECTION 100 MG in SODIUM CHL 0.9% 100 ML IV SCH (10:16)
[2020-03-06] MEDS: AMIODARONE HCL 200 MG TAB PO SCH ×2 (10:17→22:11)
[2020-03-06] MEDS: MAGNESIUM SULFATE 1GM/100ML 100 ML IV SCH ×4 (12:22→16:36)
--- NOTE | 2020-03-06 14:00 | NUR ---
Dr Andrade at bedside, updated on patient's status. Patient seen and examined. Received verbal order for social service consult for hospice. Orders read back and verified. Will carry out.
--- NOTE | 2020-03-06 14:38 | NUR ---
Dr Cordova at bedside, updated on patient's status. Patient seen and examined. Will carry out new orders.
--- NOTE | 2020-03-06 15:38 | NUR ---
Paged maxillofacial prosthodontist [employer] Radha and called back. Informed of SS consult for hospice.
--- NOTE | 2020-03-06 15:50 | NUR ---
Received call from Lynette Anne of [facility] but patient patient refused to talk with her at this time.
--- NOTE | 2020-03-06 16:03 | NUR ---
Nutrition Assessment Notes Please refer to link for full assessment notes. Est Energy needs: [id number] kcals (23-25 kcal/kgBW) Est Protein needs: 55-65 gms/day (1.1-1.3 gm/kgBW) d/t heart failure Will continue to monitor and reassess prn. Addendum: 03/06/20 at [address] Amended: Links added.
[2020-03-06] MEDS: DOBUTamine 1000MCG/ML 250 ML IV SCH (16:36)
--- NOTE | 2020-03-06 17:00 | NUR ---
Follow-up Cardiology consult to Dr Snider, awaiting call back.
--- NOTE | 2020-03-06 17:26 | NUR ---
Received call from Dr Snider, updated on patient's status, MD verbalized understanding. No new orders at this time and states "I'll take care of it."
--- NOTE | 2020-03-06 18:15 | NUR ---
Patient transferred to specialty bed, fall precautions in place. Patient tolerated well.
[2020-03-06] MEDS: FUROSEMIDE 100 MG/10ML VIAL IV SCH (18:25)
--- NOTE | 2020-03-06 19:30 | NUR ---
RECEIVED REPORT FROM DAY RN POC REVIEWED
--- NOTE | 2020-03-06 22:00 | NUR ---
TURNED AND REPOSITIONED WITH HOB UP, RESP EVEN AND UNLABORED, NO C/O DISCOMFORT AT THIS TIME CALL LIGHT WITHIN REACH
[2020-03-06] MEDS: MAGNESIUM OXIDE 400 MG TAB PO SCH (22:09)
--- NOTE | 2020-03-06 22:40 | NUR ---
Respiratory note: PT ASSESSED FOR PRN TX. HR 92, RR 28, POX 96% ON 2L NC, BREATH BS ARE CLEAR/DIMINISHED. NO SOB OR DISTRESS NOTED AT THIS TIME. PT WAS NOTIFY TO HAVE RT PAGE FRO NEEDED TX.
[2020-03-07] VITALS (7 sets, daily range): BP systolic 96–101; BP diastolic 61–73
[2020-03-07 03:41] LABS: Basophils # (auto) 0 10 ^3/uL (0-0.2); Basophils % (auto) 0.1 % (0.0-2.0); Eosinophils # (auto) 0 10 ^3/uL (0-0.8); Monocytes # (auto) 0.3 10 ^3/uL (0-1.3); Neutrophils # (auto) 4.7 10 ^3/uL (1.6-8.6); Nucleated Red Blood Cells % 0.1 %; White Blood Cell 5.6 10^3/uL (4.4-10.8)
[2020-03-07 03:42] LABS: Eosinophils % (auto) 0.9 % (0.0-7.0); Hematocrit 23.5 % (36.0-46.0); Hemoglobin 7.7 g/dL (12.2-16.2); Lymphocytes # (auto) 0.6 10 ^3/uL (0.4-5.4); Mean Corpuscular Hemoglobin 31.1 pg (28.0-32.0); Mean Corpuscular Hgb Conc. 32.7 g/dL (32.0-36.0); Mean Corpuscular Volume 94.9 fL (80.0-100.0); Monocytes % (auto) 5.6 % (0.0-12.0); Neutrophils % (auto) 83.4 % (37.0-80.0); Platelet Count (auto) 112 10^3/uL (140-450); Red Blood Cells 2.48 10^6/uL (4.0-5.20)
[2020-03-07 03:59] LABS: BUN/Creatinine Ratio 19.7; Calcium 7.4 mg/dL (8.5-10.1)
--- NOTE | 2020-03-07 04:01 | NUR ---
TURNED AND REPOSITIONED WITH HOB UP RESP EVEN AND UNLABORED CALL LIGHT WITHIN REACH BED ALARM INTACT
[2020-03-07 04:11] LABS: Potassium 2.8 mmol/L (3.5-5.1)
[2020-03-07 04:13] LABS: Red Cell Distribution Width 24.5 % (11.8-14.3)
[2020-03-07] MEDS: MIDODRINE HCL 10 MG TAB PO SCH ×4 (06:00→18:00)
[2020-03-07] MEDS: FUROSEMIDE 100 MG/10ML VIAL IV SCH (06:51)
[2020-03-07] MEDS: POTASSIUM EFFERVESENT TAB 25 MEQ PO SCH ×3 (06:52→22:00)
[2020-03-07] MEDS: LEVOTHYROXINE SODIUM 100 MCG TAB PO SCH ×2 (06:52→07:00)
--- NOTE | 2020-03-07 07:30 | NUR ---
PT REFUSED PO LIQUID KCL, DR OSBORNE PAGED PTS POTASSIUM LEVEL IS 2.8, REPORT GIVEN TO AM NURSE POC REVIEWED
--- NOTE | 2020-03-07 08:01 | NUR ---
PT. ASSESSED, NO RESP. DISTRESS OR SOB NOTED. PT. IS RESTING COMFORTABLY. HR=85,RR=24, SP02=94% ON 1.5LPM NC. PRN. MN. TX. NOT INDICATED AT THIS TIME, PT. MAY CALL IF NEEDED.
[2020-03-07] MEDS: POTASSIUM CHL 20MEQ/100ML 100 ML IV SCH ×2 (08:53→10:57)
[2020-03-07] MEDS: AMIODARONE HCL 200 MG TAB PO SCH ×2 (09:55→22:00)
[2020-03-07] MEDS: MAGNESIUM OXIDE 400 MG TAB PO SCH ×2 (09:56→22:00)
--- NOTE | 2020-03-07 10:22 | NUR ---
Received call from Lynette Anne of [facility] but patient patient refused to talk with her at this time. Marble Carver stated will try and visit patient at Hospital.
[2020-03-07] MEDS ORDERED: POTASSIUM CHL 20 Meq TABLET PO ONE (12:45)
--- NOTE | 2020-03-07 13:30 | NUR ---
MD AT BEDSIDE MD SURESH WITH PATIENT. NO NEW ORDERS.
--- NOTE | 2020-03-07 13:45 | NUR ---
MD AT BEDSIDE TINA WITH PATIENT. REVIEWING PLAN OF CARE WITH PATIENT, ORDERS PLACED IN SYSTEM.
[2020-03-07 16:14] LABS: Magnesium 2.1 mg/dL (1.6-2.6); Potassium 3.6 mmol/L (3.5-5.1)
--- NOTE | 2020-03-07 18:38 | NUR ---
REFUSING LATEST VITALS DOES NOT WANT PULSE OX, BP CUFF OR NASAL CANULA ON. REFUSED CENTRAL LINE DRESSING CHANGED.
--- NOTE | 2020-03-07 19:30 | NUR ---
Opening Shift Note Pt took off oxygen and pulse ox reading. Explained to patient that she needs to keep her oxygen and pulse ox on. Pt tachypneic. put on oxygen at 3lpm n.c. Saturations in high 70's. Oxygenation sats recovered and in high 90's now. Full assessment done see interventions. Pt refusing for turns and cares at this time. Pt states she just wants to go home. Bed locked in lowest position, all alarms on and audible.
--- NOTE | 2020-03-07 21:52 | NUR ---
Refused medications Pt refused all meds at this time. Educated pt on need for them and still refused. Will return meds.
--- NOTE | 2020-03-07 22:35 | NUR ---
Received pt. from baldo Coppola, pt. awake, alert and oriented x2, pt. weak in appearance, no c/o pain, repositioned pt. with hob elevated, not in distress.
--- NOTE | 2020-03-07 22:40 | NUR ---
Pt transferred to rm [id number]. tele #[id number]. Report given and care endorsed to RN receiving pt.
--- NOTE | 2020-03-08 00:42 | NUR ---
Respiratory note: ASSESSED PT FOR PRN MED NEB AT THIS TIME, PT DENIES SOB AT THIS TIME, NO RESP DISTRESS NOTED, NO TX INDICATED. PULSE OX 99% ON 3LNC, HR 59, RR 16, BILATERAL BS CLEAR
[2020-03-08 05:20] VITALS: BP 106/80
[2020-03-08] MEDS: POTASSIUM EFFERVESENT TAB 25 MEQ PO SCH ×2 (05:53→14:00)
[2020-03-08] MEDS: LEVOTHYROXINE SODIUM 100 MCG TAB PO SCH (05:53)
[2020-03-08] MEDS: MIDODRINE HCL 10 MG TAB PO SCH ×3 (05:53→17:25)
--- NOTE | 2020-03-08 06:00 | NUR ---
v/s stable, pt. refused her medications, informed pt. the importance of taking her meds still pt. refused, repositioned pt. not in distress.
[2020-03-08 06:38] LABS: BUN/Creatinine Ratio 27.4; Calcium 7.6 mg/dL (8.5-10.1); Magnesium 2.3 mg/dL (1.6-2.6); Potassium 3.8 mmol/L (3.5-5.1)
--- NOTE | 2020-03-08 08:15 | NUR ---
Opening Shift Note Assumed care patient asleep at this time. No S/S of distress/SOB or pain. . Patient responsive when greeting however falls back asleep. Instructed on POC, will continue to monitor for changes Q1hr and PRN
[2020-03-08 09:00] VITALS: BP 89/66
[2020-03-08] MEDS ORDERED: FUROSEMIDE 100 MG/10ML VIAL IV SCH (10:00)
[2020-03-08] MEDS: AMIODARONE HCL 200 MG TAB PO SCH ×2 (10:13→10:18)
[2020-03-08] MEDS: MAGNESIUM OXIDE 400 MG TAB PO SCH ×2 (10:13→10:18)
--- NOTE | 2020-03-08 10:19 | NUR ---
PATIENT REFUSING ORAL MEDICATION, EDUCATED PATIENT ON THE IMPORTANCE OF MEDICATIONS AND PATIENT STILL REFUSING. WILL NOTIFY THE DOCTOR.
[2020-03-08] MEDS ORDERED: FURO1TAB33 PO (12:45)
[2020-03-08] MEDS ORDERED: MID10T PO (12:45)
[2020-03-08] MEDS ORDERED: AMIO200T4 PO (12:45)
[2020-03-08] MEDS ORDERED: POTA10TA51 PO (12:46)
[2020-03-08 13:00] VITALS: BP 84/57
[2020-03-08 16:43] VITALS: BP 89/66
--- NOTE | 2020-03-08 19:15 | NUR ---
Opening Shift Note Assumed care of patient, awake and alert. No S/S of distress/SOB or pain. Instructed on POC and to call for assist PRN, will continue to monitor for changes Q1hr and PRN.
[2020-03-08 21:25] VITALS: BP 84/60
--- NOTE | 2020-03-08 21:30 | NUR ---
PATIENT DISCHARGED FROM UNIT [facility] transport has arrived to transport the patient home. Discharge papers and instructions have been given to the patient. Patient verbalizes understanding.
== END 2020-03-08 21:30 | disposition home or self-care (01) | DRG 194 ==
LOC: EDBD 10:03 → ER 10:03 → TELE 10:04 → DOU IN ICU 03-05 07:12 → TELE-WESTW 03-07 22:35
PROVIDERS: ADMIT Internal Medicine; ATTEND Hospitalist
PROC: 06HY33Z Insertion of Infusion Device into Lower Vein, Percutaneous Approach (ICD-10-PCS; principal; 2020-03-04)
DX: I11.0 Hypertensive heart disease with heart failure (principal); R57.0 Cardiogenic shock; I21.A1 Myocardial infarction type 2; E43 Unspecified severe protein-calorie malnutrition; E87.3 Alkalosis; J18.9 Pneumonia, unspecified organism; L89.152 Pressure ulcer of sacral region, stage 2; I50.84 End stage heart failure; I50.23 Acute on chronic systolic (congestive) heart failure; C78.00 Secondary malignant neoplasm of unspecified lung; D69.6 Thrombocytopenia, unspecified; E87.6 Hypokalemia; D64.9 Anemia, unspecified; N39.0 Urinary tract infection, site not specified; E87.1 Hypo-osmolality and hyponatremia; C50.919 Malignant neoplasm of unspecified site of unspecified female breast; C78.7 Secondary malignant neoplasm of liver and intrahepatic bile duct; R16.0 Hepatomegaly, not elsewhere classified; R59.0 Localized enlarged lymph nodes; K80.20 Calculus of gallbladder without cholecystitis without obstruction; R18.8 Other ascites; E66.9 Obesity, unspecified; E03.9 Hypothyroidism, unspecified; R79.89 Other specified abnormal findings of blood chemistry; I42.0 Dilated cardiomyopathy; Z86.711 Personal history of pulmonary embolism; Z68.21 Body mass index [BMI] 21.0-21.9, adult
CPT/HCPCS: 36415; 51702; 70450; 71045; 73501; 74176; 80048; 80053; 81001; 82550; 83605; 83735; 83880; 84132; 84443; 84484; 85025; 85610; 85730; 87040; 87081; 87086; 93005; 94640; 96361; 96365; 96366; 96368; G0378; J0696; J3480; P9047